=== PATIENT | female | born 1960 | race Caucasian/White ===

== ENCOUNTER 2016-09-14 16:58 | Emergency (ER) | payer OTHER ==
[~2016-09-14] VITALS: Ht 172.7 cm; Wt 54.5 kg
[2016-09-14] MEDS ORDERED: PERCT PO (17:24)
[2016-09-14] MEDS ORDERED: HYDR-3705 PO (17:24)
[2016-09-14] MEDS ORDERED: HYDR-305 PO (17:24)
[2016-09-14] MEDS ORDERED: ERYTHROMYCIN 0.5% 3.5 GM TUBE OPHTHALMIC OINTMENT OU ONE (18:45)
[2016-09-14] MEDS ORDERED: PROPARACAINE HCL 0.5% 15 ML OPHTHALMIC SOLUTION OU ONE (18:45)
[2016-09-14 20:26] VITALS: BP 146/89
== END 2016-09-14 20:28 | disposition home or self-care (01) ==
LOC: EMS 17:02
DX: H10.9 Unspecified conjunctivitis (principal); F11.10 Opioid abuse, uncomplicated; F19.10 Other psychoactive substance abuse, uncomplicated; R31.9 Hematuria, unspecified
CPT/HCPCS: 99283